=== PATIENT | male | born 1985 | race African-American/Black ===

== ENCOUNTER 2019-01-03 09:44 | Emergency (ER) | payer SELFPAY ==
[~2019-01-03] VITALS: Ht 170.2 cm; Wt 136.4 kg
[2019-01-03] MEDS ORDERED: IBUPROFEN 600 MG TABLET PO ONE (11:30)
[2019-01-03 12:30] VITALS: BP 150/88
== END 2019-01-03 12:30 | disposition home or self-care (01) ==
LOC: EMS 09:45
DX: S16.1XXA Strain of muscle, fascia and tendon at neck level, initial encounter (principal); S29.012A Strain of muscle and tendon of back wall of thorax, initial encounter; G47.30 Sleep apnea, unspecified; V49.9XXA Car occupant (driver) (passenger) injured in unspecified traffic accident, initial encounter; Y93.89 Activity, other specified; Y92.89 Other specified places as the place of occurrence of the external cause; Y99.8 Other external cause status